=== PATIENT | female | born 1975 | race Hispanic/Latino ===

== ENCOUNTER 2022-07-11 08:11 | Emergency (ER) | payer SELFPAY ==
[2022-07-11 08:30] LABS: Bilirubin Neg (Negative); Blood, Urine 250 (Negative); Clarity Cloudy (Clear); Glucose, Urine (Dipstick) Normal (Negative); Ketone, Urine 5 mg/dL (Negative); Leukocyte 500 (Negative); Nitrite Negative (Negative); Protein, Urine (Dipstick) 500 mg/dl (Neg-Trace); Urobilinogen Normal mg/dL (Less than 2); pH, Urine 6.5 (5.0-9.0)
[2022-07-11 08:33] LABS: RBC/HPF Greater than 50 HPF (0-3)
[2022-07-11 08:34] LABS: Bacteria/HPF 1+ HPF (None Seen); Mucous/LPF 1+ LPF (<2+); Squamous Epithelial 0-3 HPF (0-3); WBC/HPF 21-50 HPF (0-3)
== END 2022-07-11 08:35 | disposition home or self-care (01) ==
LOC: CSHERS 08:11
DX: N10 Acute pyelonephritis (principal)
CPT/HCPCS: 81003; 81015; 99283